=== PATIENT | male | born 1990 | race Caucasian/White ===

== ENCOUNTER 2018-02-08 23:10 | Emergency (ER) | payer SELFPAY ==
[~2018-02-08] VITALS: Ht 188 cm; Wt 125.0 kg
[2018-02-08 23:15] VITALS: BP 156/80; PULSE 106; RESP 16; TEMP 100.4; O2SAT 98
--- NOTE | 2018-02-09 00:23 | PD ---
HPI Chief Complaint: Skin Problem Time Seen by Provider: 00:06 Travel History International Travel<30 days: No Contact w/Intl Traveler<30days: No Traveled to known affect area: No History of Present Illness HPI Patient is a 27-year-old male presenting to the emergency department for evaluation of a possible abscess behind his right ear. Patient states it started 3 days ago. He reports a history of the same 2 years ago and had it drained. He denies any significant pain but states it sore and rates it a 3 out of 10. He denies any fever, chills, redness or warmth. The muscle was gradual, symptoms are mild in nature. Patient has no other complaints at this time. He denies a significant past medical history. [facility] Past Medical History Medical History: Denies Significant Hx Medical other: Yes (JEEPS DISEASE) Tetanus Vaccination: < 5 Years Influenza Vaccination: No Past Surgical History Surgical History: No Previous Surgery Social History Alcohol Use: Yes (OCC) Tobacco Use: Yes Substance Use: Yes (MARIJUANA) Allergies-Medications (Allergen,Severity, Reaction): Coded Allergies: No Known Allergies (Unverified , 02/08/18) Review of Systems Except as stated in HPI: all other systems reviewed are Neg Skin: Positive Lumps Physical Exam Narrative GENERAL: Well-developed, well-nourished, alert male. Presenting in no acute distress. SKIN: Warm and dry. 1 cm sebaceous cyst to the postauricular area on the right ear. No surrounding erythema or induration. HEAD: Normocephalic. EYES: No scleral icterus. No injection or drainage. NECK: Supple, trachea midline. No JVD or lymphadenopathy. CARDIOVASCULAR: Regular rate and rhythm without murmurs, gallops, or rubs. RESPIRATORY: Breath sounds equal bilaterally. No accessory muscle use. GASTROINTESTINAL: Abdomen soft, non-tender, nondistended. MUSCULOSKELETAL: No cyanosis, or edema. BACK: Nontender without obvious deformity. No CVA tenderness. Data Data Last Documented VS Vital Signs Date Time Temp Pulse Resp B/P (MAP) Pulse Ox O2 Delivery O2 Flow Rate FiO2 02/08/18 23:15 100.4 106 16 156/80 (105) 98 MDM Medical Decision Making Medical Screen Exam Complete: Yes Emergency Medical Condition: Yes Interpretation(s) Vital Signs Date Time Temp Pulse Resp B/P (MAP) Pulse Ox O2 Delivery O2 Flow Rate FiO2 02/08/18 23:15 100.4 106 16 156/80 (105) 98 Differential Diagnosis Sebaceous cyst versus cellulitis versus abscess versus other Narrative Course Patient is a 27-year-old male presenting to the emergency department for evaluation of a cyst to the posterior right ear. Please see procedure report for I&D. Patient is otherwise well-appearing. Initial temp was documented at 100.4, patient's temp was reassessed at 98.6. He has no sign of infection. The sebaceous this is a recurrent issue, the entire sac was evacuated from the area. Patient was advised that this could recur and if it does he should see a salesperson used cars. He was encouraged return to emergency department any new or worsening symptoms. Patient was also given verbal wound care instructions. Procedures Procedure Narrative After the risks and benefits were discussed the following procedure was performed: INCISION AND DRAINAGE OF ABSCESS: The area was prepped and was sterilely draped. A subcutaneous wheal of 1% Xylocaine with a total number 1 mL was used to anesthetize the area. The area was properly anesthetized. A number 11scalpel was used to make a 0.5 -cm incision across the area of the abscess. Cultures were obtained. The abscess was drained an irrigated with normal saline. Sterile dressing applied. Sepsis Criteria Septic Shock Criteria: Unresponsive to 30ml/kg fluid bolus Diagnosis Primary Impression: Sebaceous cyst Additional Impression: Encounter for incision and drainage procedure Referrals: Rn Or Lpn Patient Instructions: Cyst (ED), General Instructions, Incision and Drainage ( ED) Additional Instructions: Follow-up with your primary doctor Follow-up with a salesperson used [employer] Keep incision clean and dry, cover with dressing until well healed. Return to emergency department for any new or worsening symptoms Take [id number] acetaminophen or ibuprofen as needed and as directed for pain Med/Other Pt SpecificInfo: No Meds Exist/No RX given Disposition: 01 DISCHARGE HOME Condition: Stable Melly Renae February 09, 2018 00:23
--- NOTE | 2018-02-09 01:04 | PD ---
HPI Chief Complaint: Skin Problem Time Seen by Provider: 00:06 Travel History International Travel<30 days: No Contact w/Intl Traveler<30days: No Traveled to known affect area: No History of Present Illness HPI Patient is a 27-year-old male presenting to the emergency department for evaluation of an abscess on his buttock. Patient states it started 3-4 days ago , he reports subjective fevers and took ibuprofen 3 hours prior to arrival. He states he has a history of the same. He denies any rectal pain or change in his bowel habits. He reports his pain is 6 out of 10. Aching and throbbing, constant but worse when he sits. Symptom onset was gradual, symptoms are moderate in nature. No alleviating factors. PFSH Past Medical History Medical History: Denies Significant Hx Medical other: Yes (JEEPS DISEASE) Tetanus Vaccination: < 5 Years Influenza Vaccination: No Past Surgical History Surgical History: No Previous Surgery Social History Alcohol Use: Yes (OCC) Tobacco Use: Yes Substance Use: Yes (MARIJUANA) Allergies-Medications (Allergen,Severity, Reaction): Coded Allergies: No Known Allergies (Unverified , 02/08/18) Review of Systems Except as stated in HPI: all other systems reviewed are Neg Skin: Positive Lumps Physical Exam Narrative GENERAL: Well-developed, well-nourished, alert male. Presenting in no acute distress. SKIN: Warm and dry. Tenderness and mild fluctuance to left upper buttock HEAD: Normocephalic. EYES: No scleral icterus. No injection or drainage. NECK: Supple, trachea midline. No JVD or lymphadenopathy. CARDIOVASCULAR: Regular rate and rhythm without murmurs, gallops, or rubs. RESPIRATORY: Breath sounds equal bilaterally. No accessory muscle use. GASTROINTESTINAL: Abdomen soft, non-tender, nondistended. MUSCULOSKELETAL: No cyanosis, or edema. BACK: Nontender without obvious deformity. No CVA tenderness. Data Data Last Documented VS Vital Signs Date Time Temp Pulse Resp B/P (MAP) Pulse Ox O2 Delivery O2 Flow Rate FiO2 02/08/18 23:15 100.4 106 16 156/80 (105) 98 MDM Medical Decision Making Medical Screen Exam Complete: Yes Emergency Medical Condition: Yes Interpretation(s) Vital Signs Date Time Temp Pulse Resp B/P (MAP) Pulse Ox O2 Delivery O2 Flow Rate FiO2 02/08/18 23:15 100.4 106 16 156/80 (843) 48 Differential Diagnosis Pilonidal cyst versus pilonidal abscess versus cellulitis versus other Narrative Course Patient is a 27-year-old male presenting for evaluation of an abscess to his left upper buttock. Exam is consistent with a pilonidal abscess. Please see procedure report for incision and drainage. Incision and drainage did not yield any purulent drainage, no packing was required. Patient was given a dose of Keflex and metronidazole in the emergency department. He declined any pain medication. Patient was encouraged to follow-up with a primary doctor or return to emergency department should he have a localization of fluctuance or any worsening symptoms. He was encouraged to apply warm compresses to the affected area, he was encouraged to keep incision clean and dry and covered. He verbalized understanding of these instructions. Patient stable for discharge per Procedures Procedure Narrative After the risks and benefits were discussed the following procedure was performed: INCISION AND DRAINAGE OF ABSCESS: The area was prepped and was sterilely draped. A subcutaneous wheal of 1 % Xylocaine with a total number 2 mL was used to anesthetize the area. The area was properly anesthetized. A number 11 scalpel was used to make a 1 -cm incision across the area of the abscess. Sterile dressing applied. Diagnosis Primary Impression: Encounter for incision and drainage procedure Additional Impression: Infected pilonidal cyst Referrals: Primary Care Physician Patient Instructions: General Instructions, Incision and Drainage (ED), Pilonidal Cyst (ED) Additional Instructions: Follow-up with your primary doctor Follow-up with a eligibility supervisor Keep incision clean and dry, cover with dressing until well healed. Return to emergency department for any new or worsening symptoms Take [id number] acetaminophen or ibuprofen as needed and as directed for pain Med/Other Pt SpecificInfo: Prescription(s) given Scripts Metronidazole (Metronidazole) 500 Mg Tab 500 MG PO TID for Infection for 10 Days, TAB 0 Refills Prov: Melly Renae 02/09/18 Cephalexin (Keflex) 500 Mg Cap 500 MG PO Q12H for Infection for 10 Days, #20 CAP 0 Refills Prov: Melly Renae 02/09/18 Disposition: 01 DISCHARGE HOME Condition: Stable Melly Renae February 09, 2018 01:03
[2018-02-09] MEDS ORDERED: metroNIDAZOLE 500 MG TAB PO ONE (01:30)
[2018-02-09] MEDS ORDERED: CEPHALEXIN MONOHYDRATE 500 MG CAP PO ONE (01:30)
[2018-02-09] MEDS ORDERED: CEPH-460 PO (01:32)
[2018-02-09] MEDS ORDERED: METR1TAB76 PO (01:32)
== END 2018-02-09 01:49 | disposition home or self-care (01) ==
LOC: NEPD 23:10
DX: L05.91 Pilonidal cyst without abscess (principal); F12.90 Cannabis use, unspecified, uncomplicated; Z72.0 Tobacco use
CPT/HCPCS: 10080